=== PATIENT | male | born 1985 | race Caucasian/White ===

== ENCOUNTER 2022-06-02 11:08 | Emergency (ER) | payer OTHER ==
[2022-06-02 12:14] VITALS: O2SAT 97
--- NOTE | 2022-06-02 12:24 | ERPHSYRPT ---
- History of Present Illness Time Seen by Provider: 06/02/22 12:23 Source: patient Exam Limitations: no limitations Patient Subjective Stated Complaint: C/O sore throat and mouth pain for a few days Triage Nursing Assessment: Patient is alert and oriented. No SOB. Cavities noted when examining mouth. No swelling or sores noted to throat when examinig oral cavity. Physician History: 36-year-old white male patient who presents to the emergency department with sore throat and mouth pain and mild cough for 3 days. He denies chest pain he denies shortness of breath. He has no abdominal pain. He said no nausea vomiti ng or diarrhea. He has not been exposed to individuals with similar symptoms or who have been diagnosed with COVID-19 or other viral infections. Timing/Duration: day(s) Cough Quality/Degree: mild (A few days), dry cough Possible Cause: no prior episodes Modifying Factors: Improves With: coughing Associated Symptoms: cough, No chest pain/soreness, No headache, No shortness of breath Allergies/Adverse Reactions: No Known Drug Allergies Allergy (Verified 06/02/22 12:06) Hx Tetanus, Diphtheria Vaccination/Date Given: Yes Hx Influenza Vaccination/Date Given: No Hx Pneumococcal Vaccination/Date Given: No Immunizations Up to Date: Yes Travel Risk - International Travel Have you traveled outside of the country in past 3 weeks: No - Coronavirus Screening Are you exhibiting any of the following symptoms?: No Close contact with a COVID-19 positive Pt in past 14-21 Days: No - Vaccine Status Have you recieved a Covid-19 vaccination: No - Review of Systems Constitutional: No Symptoms Eyes: No Symptoms Ears, Nose, & Throat: Mouth Pain, Throat Pain, Painful Swallowing Respiratory: Cough (Mild nonproductive) Cardiac: No Symptoms Abdominal/Gastrointestinal: No Symptoms Genitourinary Symptoms: No Symptoms Musculoskeletal: No Symptoms Skin: No Symptoms Neurological: No Symptoms Psychological: No Symptoms Endocrine: No Symptoms Hematologic/Lymphatic: No Symptoms Immunological/Allergic: No Symptoms All Other Systems: Reviewed and Negative - Past Medical History Pertinent Past Medical History: No - Past Surgical History Past Surgical History: No - Social History Smoking Status: Current every day smoker Exposure to second hand smoke: Yes Drug Use: none Patient Lives Alone: No - Nursing Vital Signs Nursing Vital Signs: Initial Vital Signs Temperature 97.5 F 03/06/23 12:07 Pulse Rate 75 03/06/23 12:07 Respiratory Rate 20 06/02/22 12:07 Blood Pressure 118/71 06/02/22 12:07 O2 Sat by Pulse Oximetry 97 06/02/22 12:07 Pain Scale Pain Intensity 5 - Physical Exam General Appearance: no apparent distress, alert, anxiety Eye Exam: PERRL/EOMI, eyes nml inspection Ears, Nose, Throat Exam: TMs normal, moist mucous membranes, pharyngeal erythema Neck Exam: normal inspection, non-tender, supple, full range of motion, No meningismus Respiratory Exam: normal breath sounds, lungs clear, airway intact, No chest tenderness, No respiratory distress Cardiovascular Exam: regular rate/rhythm, normal heart sounds, normal peripheral pulses Gastrointestinal/Abdomen Exam: soft, normal bowel sounds, No tenderness Rectal Exam: not done Back Exam: normal inspection, normal range of motion, No CVA tenderness, No vertebral tenderness Extremity Exam: normal inspection, normal range of motion, pelvis stable Neurologic Exam: alert, oriented x 3, cooperative, visual education 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 as tested, normal mood/affect, nml cerebellar function, nml station & gait, sensation nml Skin Exam: normal color, warm, dry Lymphatic Exam: No adenopathy SpO2 Interpretation: normal SpO2: 97 O2 Delivery: Room Air - Course Nursing assessment & vital signs reviewed: Yes Lab/Rad Data: Laboratory Results 06/02/22 Range/Units 12:40 Influenza Type A Ag NEGATIVE (NEGATIVE) Influenza Type B Ag NEGATIVE (NEGATIVE) RSV (PCR) NEGATIVE (Negative) SARS-CoV-2 (PCR) NEGATIVE (NEGATIVE) Group A Strep Antibody NOT DETECTED (NEGATIVE) - Progress Progress: unchanged Air Movement: good Progress Note: 06/02/22 14:06 This patient's medical issue is 1 of low complexity. The patient past medical history was reviewed as well as his history of present illness and physical findings on examination. These issues were used to order a work-up that includes group A strep and viral swabs. The results of these studies were reviewed by me and discussed with the patient. Discharge plan was discussed with the patient which includes taking the Z-Arthur and steroids as prescribed. He is to drink plenty of fluids. He is to avoid exposure to any kind of smoke. He is to follow-up with his primary care physician for further evaluation management. Blood Culture(s) Obtained: No Antibiotics given: No Counseled pt/family regarding: lab results, diagnosis, need for follow-up Medical Desision Making - Discussion of managment Reviewed:: Test results Agreed on:: Treatment plan, need for follow-up - Diagnostic Testing Diagnostic test were ordered, analyzed, and reviewed by me: Yes - Risk of complications Low Risk: Low risk of morbidity from additional dx testing or treatment - Departure Departure Disposition: Home Clinical Impression: Pharyngitis, URI (upper respiratory infection) Condition: Stable Critical Care Time: No Additional Instructions: Drink plenty of fluids. Avoid smoke of any kind. Take your medication as prescribed. Follow-up with your primary care physician for further evaluation and management. Prescriptions: Prednisone 10 mg [Deltasone 10 mg] 10 mg PO TID #12 tablet Azithromycin 250 mg [Zithromax 250 MG TABLET] 250 mg PO ZPACK #6 tablet
[2022-06-02 13:09] LABS: Group A Strep NOT DETECTED (NEGATIVE)
[2022-06-02 13:22] LABS: INFLUENZA A NEGATIVE (NEGATIVE); INFLUENZA B NEGATIVE (NEGATIVE); RESPIRATORY SYNCTIAL VIRUS NEGATIVE (Negative); SARS-CoV-2 Xpert Express NEGATIVE (NEGATIVE)
[2022-06-02 14:22] VITALS: BP 133/74; PULSE 67
== END 2022-06-02 14:20 | disposition home or self-care (01) ==
LOC: ED 11:08
DX: J06.9 Acute upper respiratory infection, unspecified (principal); J02.9 Acute pharyngitis, unspecified; R05.1 Acute cough; Z79.52 Long term (current) use of systemic steroids; Z28.310 Unvaccinated for COVID-19; Z72.0 Tobacco use
CPT/HCPCS: 0241U; 87651; 99282

== ENCOUNTER 2022-07-08 12:21 | Emergency (ER) | payer OTHER ==
[2022-07-08] MEDS ORDERED: XYLOCAINE 1% HCL 20 ML MDV ONE (12:43)
--- NOTE | 2022-07-08 12:53 | ERPHSYRPT ---
- History of Present Illness Source: patient Exam Limitations: other (Very poor historian) Patient Subjective Stated Complaint: Pt states "I woke up and my ear was like this and I need someone to look at my hand." Triage Nursing Assessment: Pt presented alert and oriented X 3, skin pwd. Pt ambulates with an upright steady gait, able to speak in clear full sentences. PT left upper ear lobe swollen non tender, pt right hand palm dry red and cracking. Physician History: 36 yo WM w L ear lobe swelling x 1month. Pt denies trauma/fever/hearing impairment. He also complains of R hand rash x 1 year. Rash is pruritic. He works at a [employer] but states that the rash pre-dates his employment. Denies any new exposures or contacts. Timing/Duration: other (Ear x 1month/R hand rash x 1yr) Severity: mild Modifying Factors: Improves With: nothing Associated Symptoms: denies symptoms Allergies/Adverse Reactions: No Known Drug Allergies Allergy (Verified 06/02/22 12:06) Hx Tetanus, Diphtheria Vaccination/Date Given: Yes Hx Influenza Vaccination/Date Given: No Hx Pneumococcal Vaccination/Date Given: No Travel Risk - International Travel Have you traveled outside of the country in past 3 weeks: No - Coronavirus Screening Are you exhibiting any of the following symptoms?: No Close contact with a COVID-19 positive Pt in past 14-21 Days: No - Vaccine Status Have you recieved a Covid-19 vaccination: No - Review of Systems Constitutional: No Symptoms Eyes: No Symptoms Ears, Nose, & Throat: No Symptoms, Ear Pain Respiratory: No Symptoms Cardiac: No Symptoms Abdominal/Gastrointestinal: No Symptoms Genitourinary Symptoms: No Symptoms Musculoskeletal: No Symptoms Skin: Rash Neurological: No Symptoms Psychological: No Symptoms Endocrine: No Symptoms Hematologic/Lymphatic: No Symptoms Immunological/Allergic: No Symptoms - Past Medical History Pertinent Past Medical History: No - Past Surgical History Past Surgical History: No - Social History Smoking Status: Current every day smoker Exposure to second hand smoke: Yes Drug Use: none Patient Lives Alone: No - Nursing Vital Signs Nursing Vital Signs: Initial Vital Signs Temperature 96.7 F 07/08/22 12:25 Pulse Rate 81 07/08/22 12:25 Respiratory Rate 20 07/08/22 12:25 Blood Pressure 124/70 07/08/22 12:25 O2 Sat by Pulse Oximetry 98 07/08/22 12:25 Pain Scale Pain Intensity 5 WNL - Physical Exam General Appearance: no apparent distress Eye Exam: PERRL/EOMI, eyes nml inspection Ears, Nose, Throat Exam: TMs normal, pharynx normal, other (L cauliflower ear) Neck Exam: normal inspection, non-tender, supple, full range of motion, No meningismus, No mass, No Brudzinski, No Kernig's, No carotid bruit Respiratory Exam: normal breath sounds, lungs clear, airway intact, No respiratory distress Cardiovascular Exam: regular rate/rhythm, normal heart sounds, normal peripheral pulses, capillary refill <2 sec, No murmur Gastrointestinal/Abdomen Exam: soft, normal bowel sounds, No tenderness Extremity Exam: normal inspection, normal range of motion Neurologic Exam: alert, oriented x 3, cooperative, 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-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 nml as tested, normal mood/affect, nml cerebellar function, nml station & gait, sensation nml, No motor deficits, No sensory deficit Skin Exam: other (Contact dermatitis R palm/Scaley, excoriated rash) Lymphatic Exam: No adenopathy SpO2 Interpretation: normal SpO2: 98 O2 Delivery: Room Air Procedures - Incision and Drainage Time of Procedure: 12:53 Site: L helix Anesthesia: 1% Lidocaine cc's of anesthesia: 2 Blade Size: 11 I & D Procedure: betadine prep Results: other (Moderate amount of blood drained L helix/No comps) - Course Nursing assessment & vital signs reviewed: Yes Ordered Tests: Medication Summary Discontinued Medications Generic Name Dose Route Start Last Admin Trade Name Delaney PRN Reason Stop Dose Admin Lidocaine HCl Confirm 07/08/22 12:43 Lidocaine Hcl 1% 20 Ml Mdv 20 Ml Ml Administered 07/08/22 12:44 Dose 5 ml .ROUTE .[employer]-MED ONE - Progress Progress: improved Progress Note: 07/08/22 13:01 Nursing note and vital signs reviewed No food or housing insecurities noted Pt most likely has a contact dermatitis of his R hand. Will start Triamcinolone cream twice a day for 10-14 days and advise pt to keep his hand dry and covered at work. L ear most likely cauliflower ear which most likely is due to occult trauma. Permission obtained for I/D after informed consent. Condition resolved after drainage. Counseled pt/family regarding: diagnosis, need for follow-up Medical Desision Making - Risk of complications Minimal Risk: Minimal risk of morbidity - Departure Departure Disposition: Home Clinical Impression: Cauliflower ear, left ear, Contact dermatitis Condition: Stable Critical Care Time: No Referrals: DOCTOR,NO FAMILY [Primary Care Provider] - Follow up/PCP as directed Instructions: Contact Dermatitis (DC) Additional Instructions: Wash left ear twice a day with soap/water Watch for signs of infection-increasing redness, increasing pain, temperature greater than 100.4, or increasing swelling Apply Triamcinolone cream to right hand twice a day for 10-14 days Keep hand dry and covered at work Follow up with your family Prescriptions: Triamcinolone 0.1% Cream [Kenalog 0.1% Cream 15 gm] 15 gm TP BID 14 Days #15 units
[2022-07-08 13:13] VITALS: BP 120/79; PULSE 83; O2SAT 100
== END 2022-07-08 13:13 | disposition home or self-care (01) ==
LOC: ED 12:21
DX: M95.12 Cauliflower ear, left ear (principal); L25.9 Unspecified contact dermatitis, unspecified cause; Z28.310 Unvaccinated for COVID-19; Z72.0 Tobacco use
CPT/HCPCS: 69399; 99281

== ENCOUNTER 2022-07-10 13:11 | Emergency (ER) | payer OTHER ==
[2022-07-10 13:23] VITALS: BP 112/54; PULSE 84; O2SAT 98
--- NOTE | 2022-07-10 13:29 | ERPHSYRPT ---
- History of Present Illness Time Seen by Provider: 07/10/22 13:23 Source: patient Exam Limitations: no limitations Patient Subjective Stated Complaint: C/O Swelling and pain to left ear. Patient states it started approx one month ago and just kept getting worse. He was in the ER 2 days ago and had it drained but it has swelled back up again. Triage Nursing Assessment: Patient ambulated back to ER without difficulties. he is alert and oriented. No SOB. Left upper ear is swollen with a small cut/slit in the center of it from ER visit on Thursday. The cut/slit is now closed/well- approximated and not draining at this time. Physician History: This is a 36-year-old white male who has had left external ear swelling for approximately 1 month. He does not know why or how it occurred. He has never had this before. He was seen in the emergency department 2 days ago here at [facility]. An incision and drainage was performed which improved the swelling. However, in the last 2 days, the swelling has recurred. He has not had any fever. He did not receive any antibiotics. Timing/Duration: worse, other Severity: mild (To moderate) Modifying Factors: Improves With: nothing Associated Symptoms: denies symptoms Allergies/Adverse Reactions: No Known Drug Allergies Allergy (Verified 07/10/22 13:15) Hx Tetanus, Diphtheria Vaccination/Date Given: Yes Hx Influenza Vaccination/Date Given: No Hx Pneumococcal Vaccination/Date Given: No Immunizations Up to Date: Yes Travel Risk - International Travel Have you traveled outside of the country in past 3 weeks: No - Coronavirus Screening Are you exhibiting any of the following symptoms?: No Close contact with a COVID-19 positive Pt in past 14-21 Days: No - Vaccine Status Have you recieved a Covid-19 vaccination: No - Review of Systems Constitutional: No Symptoms Eyes: No Symptoms Ears, Nose, & Throat: Ear Pain (Mild with left external ear swelling) Respiratory: No Symptoms Cardiac: No Symptoms Abdominal/Gastrointestinal: No Symptoms Genitourinary Symptoms: No Symptoms Musculoskeletal: No Symptoms Skin: No Symptoms Neurological: No Symptoms Psychological: No Symptoms Endocrine: No Symptoms Hematologic/Lymphatic: No Symptoms Immunological/Allergic: No Symptoms All Other Systems: Reviewed and Negative - Past Medical History Pertinent Past Medical History: No - Past Surgical History Past Surgical History: No - Social History Smoking Status: Current every day smoker How long have you smoked: few years Exposure to second hand smoke: Yes Drug Use: none Patient Lives Alone: No - Nursing Vital Signs Nursing Vital Signs: Initial Vital Signs Temperature 97.3 F 07/10/22 13:17 Pulse Rate 84 07/10/22 13:17 Respiratory Rate 16 07/10/22 13:17 Blood Pressure 112/54 07/10/22 13:17 O2 Sat by Pulse Oximetry 98 07/10/22 13:17 Pain Scale Pain Intensity 5 - Physical Exam General Appearance: no apparent distress, alert, anxiety Eye Exam: PERRL/EOMI, eyes nml inspection Ears, Nose, Throat Exam: other (Upper outer ear with ballotable anterior and posterior fluid.) Neck Exam: normal inspection, non-tender, supple, full range of motion Respiratory Exam: chest tenderness, airway intact, No respiratory distress Gastrointestinal/Abdomen Exam: No tenderness Rectal Exam: not done Back Exam: normal inspection, normal range of motion, No CVA tenderness, No vertebral tenderness Extremity Exam: normal inspection, normal range of motion, pelvis stable Neurologic Exam: alert, oriented x 3, cooperative, 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 caretaker II-XII nml as tested, normal mood/affect, nml cerebellar function, nml station & gait, sensation nml Skin Exam: other (See above) SpO2 Interpretation: normal SpO2: 98 O2 Delivery: Room Air - Course Nursing assessment & vital signs reviewed: Yes - Progress Progress: unchanged Medical Desision Making - Discussion of managment Agreed on:: Treatment plan, need for follow-up - Diagnostic Testing Diagnostic test were ordered, analyzed, and reviewed by me: No - Risk of complications The pt has a mod risk of morbidity or mortality based on: Need for prescription drug management - Departure Departure Disposition: Home Clinical Impression: Ear hematoma, left Condition: Stable Critical Care Time: No Referrals: DOCTOR,NO FAMILY [Primary Care Provider] - Follow up/PCP as directed Additional Instructions: Keep the left ear area clean daily with soap and water. Do not apply ointments lotions or creams. Take your antibiotics as prescribed. Follow-up with your ear nose and throat physician at the scheduled date and time of the appointment. Take Tylenol and ibuprofen for pain control Prescriptions: Cephalexin Mh 500 mg [Keflex 500 mg] 500 mg PO TID #21 cap
== END 2022-07-10 13:55 | disposition home or self-care (01) ==
LOC: ED 13:11
DX: H61.122 Hematoma of pinna, left ear (principal); Z28.310 Unvaccinated for COVID-19; Z72.0 Tobacco use
CPT/HCPCS: 99281

== ENCOUNTER 2023-08-10 12:03 | Emergency (ER) | payer OTHER ==
[2023-08-10 13:19] VITALS: O2SAT 98
--- NOTE | 2023-08-10 13:21 | ERPHSYRPT ---
- History of Present Illness Time Seen by Provider: 08/10/23 13:21 Source: patient Exam Limitations: no limitations Patient Subjective Stated Complaint: "I fell down some stairs last night and hurt my foot". Triage Nursing Assessment: Pt presents to ER with complaints of right foot/ankle injury. Pt ambulates back for triage with unsteady gait, has assistance with cane. Pt has swelling, bruising, and tenderness to right ankle. Pt denies any further injuries. Denies LOC. Pt is alert and oriented x 3. Respirations are easy. Pt states a bat flew into the house from a window and started to run and a dog was also running and struck his legs causing him to fall down the stairs. Took ibuprofen last night - states still having pain. Pt rates pain 10/10 scale. Physician History: This is a 37-year-old white male patient who last night fell down the stairs injuring his right foot and right ankle. Today, there is swelling and bruising present. He is able to put weight on it but he is using a cane to ambulate. There are no other areas of injury or pain per his report Occurred: yesterday Quality: constant, aching Severity of Pain-Max: moderate Severity of Pain-Current: moderate Lower Extremities Pain: foot: right (Bruising and swelling dorsal, lateral aspect), ankle: right (Bruising and swelling lateral aspect) Modifying Factors: Improves With: movement Associated Symptoms: other Allergies/Adverse Reactions: No Known Drug Allergies Allergy (Verified 08/10/23 13:19) Hx Tetanus, Diphtheria Vaccination/Date Given: No Hx Influenza Vaccination/Date Given: No Hx Pneumococcal Vaccination/Date Given: No Immunizations Up to Date: No Travel Risk - International Travel Have you traveled outside of the country in past 3 weeks: No - Emerging Infectious Disease Are you exhibiting symptoms associated with any current EIDs: No - Review of Systems Constitutional: No Symptoms Eyes: No Symptoms Ears, Nose, & Throat: No Symptoms Respiratory: No Symptoms Cardiac: No Symptoms Abdominal/Gastrointestinal: No Symptoms Genitourinary Symptoms: No Symptoms Musculoskeletal: Fall, Injury (Right foot and ankle) Skin: No Symptoms Neurological: No Symptoms Psychological: No Symptoms Endocrine: No Symptoms Hematologic/Lymphatic: No Symptoms Immunological/Allergic: No Symptoms All Other Systems: Reviewed and Negative - Past Medical History Pertinent Past Medical History: No - Past Surgical History Past Surgical History: No - Social History Smoking Status: Current every day smoker How long have you smoked: few years Exposure to second hand smoke: Yes Drug Use: marijuana Patient Lives Alone: No - Nursing Vital Signs Nursing Vital Signs: Initial Vital Signs Temperature 98 F 08/10/23 13:12 Pulse Rate 80 08/10/23 13:12 Respiratory Rate 16 08/10/23 13:12 O2 Sat by Pulse Oximetry 98 08/10/23 13:12 Pain Scale Pain Intensity 10 - Physical Exam General Appearance: no apparent distress Eyes, Ears, Nose, Throat Exam: moist mucous membranes, other (Several teeth missingchronic) Neck Exam: normal inspection, non-tender, supple, full range of motion Cardiovascular/Respiratory Exam: chest non-tender, no respiratory distress Gastrointestinal/Abdominal Exam: non-tender Back Exam: normal inspection, normal range of motion, No CVA tenderness, No vertebral tenderness Hips Exam: bilateral: non-tender, normal inspection, normal range of motion, no evidence of injury Legs Exam: bilateral leg: non-tender, normal inspection, normal range of motion, no evidence of injury Knees Exam: bilateral knee: non-tender, normal inspection, normal range of motion, no evidence of injury Ankle Exam: right ankle: ecchymosis, soft tissue tenderness, swelling, left ankle: non-tender, normal inspection, normal range of motion, no evidence of injury Foot Exam: right foot: ecchymosis, soft tissue tenderness, swelling, left foot: non-tender, normal inspection, normal range of motion, no evidence of injury Neuro/Tendon Exam: normal sensation, normal motor functions, normal tendon functions, responds to pain, no evidence tendon injury Mental Status Exam: alert, oriented x 3, cooperative Skin Exam: ecchymosis (Lateral aspect right ankle and right foot dorsal and lateral aspect) SpO2 Interpretation: normal SpO2: 98 O2 Delivery: Room Air - Course Nursing assessment & vital signs reviewed: Yes Ordered Tests: Active Orders 24 hr Category Date Time Status ANKLE (3 VIEWS) Stat Exams 08/10/23 13:21 Taken FOOT (MINIMUM 3 VIEWS) Stat Exams 08/10/23 13:21 Taken - Progress Progress: unchanged, pain not gone completely, re-examined Progress Note: 08/10/23 13:54 My medical decision making and the assignment of low complexity to this patient's medical issue today is based on review of the patient's past medical history, review the patient's medication list, review patient drug allergy list, history present illness and physical findings on examination. The workup in this patient includes x-ray of the patient's right foot and right ankle. I interpreted the x-ray of the patient's right foot. I see a nondisplaced fracture of the proximal fifth metatarsal. I interpreted the x-ray of the patient's right ankle. I do not see an acute fracture or dislocation present. Counseled pt/family regarding: diagnosis, need for follow-up, rad results Medical Desision Making - Diagnostic Testing Diagnostic test were ordered, analyzed, and reviewed by me: Yes Radiological Interpretation: Interpreted by me - Risk of complications The pt has a mod risk of morbidity or mortality based on: Need for prescription drug management - Departure Departure Disposition: Home Clinical Impression: Fracture of metatarsal of right foot, closed Condition: Stable Critical Care Time: No Referrals: DOCTOR,NO FAMILY [Primary Care Provider] - Follow up/PCP as directed Additional Instructions: Use crutches to only bear weight lightly. Wear the walking boot/shoe. Follow- up with Dr. Khan (podiatry) by phone today to make arranges for follow-up appointment for further evaluation management. Another option you have is a walk-in clinic at [facility] orthopedic clinic. You do not need an appointment. It is open 8 to 10 AM Thursday through Thursday. Add ibuprofen 600 mg with food 3 times a day for the next 5 days. Prescriptions: Oxycodone HCl/Acetaminophen [Percocet 5-325 mg Tablet] 1 each PO Q8H PRN PRN #6 tablet MDD 3 PRN Reason: Moderate To Severe Pain
[2023-08-10 14:10] VITALS: BP 148/88; PULSE 76; RESP 20; TEMP 97.6
--- NOTE | 2023-08-10 14:17 | XRAY ---
CLINICAL HISTORY: Fall COMPARISON: None. TECHNIQUE: X-ray of right ankle showing AP, lateral and oblique views. FINDINGS: Normal bone density. No fracture or bony abnormality was seen. Ankle joint space is preserved. No evidence of dislocation or subluxation. Fat planes are intact. IMPRESSION: The X-ray of the right ankle appears normal. DISCLAIMER:A subtle bone abnormality or fracture may not be readily apparent on x-rays, thus clinical correlation and further imaging including follow up CT, MRI, or follow up x-rays are advised as needed. Electronically Signed by: Tahmina Joshi MD. (08/10/2023 14:13:14 EDT)
--- NOTE | 2023-08-10 14:36 | XRAY ---
CLINICAL HISTORY: Fall COMPARISON: None. TECHNIQUE: X-ray right foot AP, oblique, and lateral 3 views. FINDINGS: An undisplaced oblique fracture seen in the proximal shaft of the fifth metatarsal bone. Mild adjacent soft tissue swelling was noted. Normal bone mineral density was noted. A radiological examination of the foot demonstrates no lytic or sclerotic bone lesion. The cortical margins of the rest of the osseous structures are within normal limits. Articular margins are intact. No focal abnormality was seen in the great toe. IMPRESSION: An undisplaced oblique fracture was seen in the proximal shaft of the fifth metatarsal bone. Mild adjacent soft tissue swelling was noted. Disclaimer: A subtle bone abnormality or fracture may not be readily apparent on x-rays, thus clinical correlation and further imaging including follow-up CT, MRI, or follow-up x-rays are advised as needed. Electronically Signed by: Tahmina Joshi MD. (08/10/2023 14:31:57 EDT)
== END 2023-08-10 14:22 | disposition home or self-care (01) ==
LOC: ED 12:03
DX: S92.354A Nondisplaced fracture of fifth metatarsal bone, right foot, initial encounter for closed fracture (principal); W10.9XXA Fall (on) (from) unspecified stairs and steps, initial encounter; M25.571 Pain in right ankle and joints of right foot; Z79.891 Long term (current) use of opiate analgesic; Z72.0 Tobacco use
CPT/HCPCS: 73610; 73630; 99283; L4386